=== PATIENT | male | born 1955 | race Caucasian/White ===

== ENCOUNTER 2022-06-10 12:54 | Emergency (ER) | payer MEDICARE, SELFPAY ==
[2022-06-10 12:55] VITALS: BP 168/91; PULSE 79; RESP 18; TEMP 36.8; O2SAT 98; BMI 29.0
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
[2022-06-10 14:01] VITALS: BP 142/65; PULSE 75; RESP 17; O2SAT 97
[2022-06-10] MEDS: Acetaminophen 500 MG Tablet 1000 MG PO (14:13)
== END 2022-06-10 14:25 | disposition home or self-care (01) ==
PROVIDERS: Emergency Provider Emergency Medicine; PCP Family Medicine; Visit Provider Emergency Medicine
DX: S13.4XXA Sprain of ligaments of cervical spine, initial encounter (principal); E11.9 Type 2 diabetes mellitus without complications; Z79.84 Long term (current) use of oral hypoglycemic drugs; Z79.82 Long term (current) use of aspirin; V29.81 Motorcycle rider (driver) (passenger) injured in transport accident with military vehicle
CPT/HCPCS: 70450; 71046; 72125; 99284; A4216

== ENCOUNTER 2022-06-30 10:29 | Inpatient (IN) | payer MEDICARE, SELFPAY ==
[2022-06-30] VITALS (12 sets, daily range): BP systolic 100–126; BP diastolic 58–76; PULSE 52–102; RESP 16–19; TEMP 35.7–37; O2SAT 94–100; BMI 28.2; BMI 27.8
[2022-06-30 11:16] LABS: Absolute Lymphocyte Count 0.44 X10^3/uL (0.83-4.51); Absolute Neutrophil Count 14.7 X10^3/uL (2.0-7.7); Basophil# 0.03 X10^3/uL; Basophil% 0.2 % (0-1); Hematocrit 35.9 % (40-54); Hemoglobin 12.5 g/dL (13.0-16.5); Lymphocyte # 0.44 X10^3/ul (0.83-4.51); Lymphocyte % 2.7 % (19-41); Mean Corp Hgb Conc 34.8 g/dL (32-36); Mean Corpuscular Hgb 31.3 pg (27.0-32.0); Mean Platelet Vol. 10.2 fl (6.2-12.0); Monocyte# 1.33 X10^3/uL; NRBC Flagged by Analyzer 0 % (0-5); Neutrophil # 14.67 X10^3/uL (2.7-7.7); Neutrophil % 88.7 % (47-70); POSITIVE DIFFERENTIAL YES; Platelet Count 194 K/mm3 (150-450); RBC Distribution Width CV 13.1 % (11.6-14.6); Red Blood Count 3.99 M/mm3 (4.6-6.2); White Blood Count 16.5 K/mm3 (4.4-11.0)
[2022-06-30] MEDS: 0.9% Normal Saline 1,000 ML 150 ML IV (11:28)
[2022-06-30 11:31] LABS: AST(SGOT) 80 U/L (15-37); Alanine Aminotransfer ALT/SGPT 121 U/L (16-61); Alkaline Phosphatase 397 U/L (45-117); Anion Gap 11 (5-15); BUN 15 mg/dL (7-18); BUN/Creat Ratio 10.3 RATIO (10-20); Bilirubin, Direct 8.02 mg/dL (0.00-0.30); Calcium,Total 8.9 mg/dL (8.5-10.1); Chloride 98 mmol/L (98-107); Creatinine, Serum 1.45 mg/dL (0.70-1.30); EST Glomerular Filtration Rate 52 mL/min (>60); Est Glom Filt Rate - Afr Amer 62 mL/min (>60); Estimated Creatinine Clearance 57.48 ml/min; Globulin 3.9 g/dL (2.2-4.2); Glucose 303 mg/dL (74-106); Lipase 190 U/L (73-393); Potassium 4.4 mmol/L (3.5-5.1); Protein, Total 6.9 g/dL (6.4-8.2); Sodium Level 132 mmol/L (136-145)
[2022-06-30 11:35] LABS: Differential Indicated SCAN CRITERIA MET
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
--- NOTE | 2022-06-30 12:19 | NURSING ---
MED SURG JESUS ALBERTO CHOLEDOCHOLITHIASIS
[2022-06-30 12:57] LABS: International Normalized Ratio 1.1; Prothrombin Time (Protime)PT. 13.5 SECONDS (11.7-14.9)
[2022-06-30 12:58] LABS: Partial Thromboplast Time 23.7 Seconds (24.1-36.2)
[2022-06-30 13:04] LABS: Differential Comment SCANNED
[2022-06-30] MEDS: 0.9% Normal Saline 1,000 ML 15 ML IV (14:35)
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
--- NOTE | 2022-06-30 16:40 | RAD_ITS ---
CLINICAL HISTORY: Male, 66 years old. Pain. PROCEDURE: ERCP. FLUOROSCOPY TIME (if supplied): 81.9 seconds. Exposure of 30.22 mGy TECHNIQUE: Fluoroscopy was performed during an ERCP. 24 images were presented for interpretation. The initial images demonstrates cannulization CBD with injection of contrast. There is evidence of balloon stripping of the CBD which appears larger in diameter than the endoscope. The intrahepatic ducts appear normal. There is eventual placement of a biliary stent. Please refer to the residual report for further details. RAD/ERCP Biliary/Pancreas IMPRESSION: Fluoroscopy performed during ERCP. Electronically Signed: Sage Hameed DO at 19:32 EST ,
--- NOTE | 2022-06-30 17:22 | OP.ERCP_ITS ---
Patient Name: Vicente Linda Procedure Date: 06/30/2022 4:08 PM Date of : 1955 Age: 66 Procedure: ERCP Indications: Jaundice, Elevated liver enzymes Providers: Tan Ramirez DO Medicines: Monitored Anesthesia Care Patient Profile: This is a 66 year old male. Refer to note in patient chart for documentation of history and physical. Patient has symptoms of acute jaundice. Complications: No immediate complications. Procedure: Pre-Anesthesia Assessment: - Prior to the procedure, a History and Physical was performed, and patient medications and allergies were reviewed. The risks and benefits of the procedure and the sedation options and risks were discussed with the patient. All questions were answered and informed consent was obtained. Patient identification and proposed procedure were verified by the physician in the pre-procedure area. Mental Status Examination: alert and oriented. Airway Examination: normal oropharyngeal airway and neck mobility. Respiratory Examination: clear to auscultation. CV Examination: normal. Prophylactic Antibiotics: The patient does not require prophylactic antibiotics. Prior Anticoagulants: The patient has taken no previous anticoagulant or antiplatelet agents. ASA Grade Assessment: III - A patient with severe systemic disease. After reviewing the risks and benefits, the patient was deemed in satisfactory condition to undergo the procedure. The anesthesia plan was to use monitored anesthesia care (MAC). Immediately prior to administration of medications, the patient was re-assessed for adequacy to receive sedatives. The heart rate, respiratory rate, oxygen saturations, blood pressure, adequacy of pulmonary ventilation, and response to care were monitored throughout the procedure. The physical status of the patient was re-assessed after the procedure. After obtaining informed consent, the scope was passed under direct vision. Throughout the procedure, the patient's blood pressure, pulse, and oxygen saturations were monitored continuously. The Duodenoscope was introduced through the mouth, and advanced to the duodenum and used to inject contrast into the bile duct. Scope In: 4:41:17 PM Scope Out: 5:03:04 PM Total Procedure Duration Time 0 hours 21 minutes 47 seconds Findings: The lunchroom mother film was normal. The esophagus was successfully intubated under direct vision. The scope was advanced to a normal major papilla in the descending duodenum without detailed examination of the pharynx, larynx and associated structures, and upper GI tract. The upper GI tract was grossly normal. The bile duct was deeply cannulated with the short-nosed traction sphincterotome. Contrast was injected. I personally interpreted the bile duct images. There was brisk flow of contrast through the ducts. Image quality was excellent. Contrast extended to the entire biliary tree. The lower third of the main bile duct was completely obstructed by what appeared to be a stone. Opacification of the entire biliary tree except for the cystic duct and gallbladder and main bile duct was successful. The maximum diameter of the ducts was 10 mm. The lower third of the main bile duct contained three stones, the largest of which was 6 mm in diameter. The main bile duct was moderately dilated and diffusely dilated, with a stone causing an obstruction. The largest diameter was 12 mm. A straight Roadrunner wire was passed into the biliary tree. A 5 mm biliary sphincterotomy was made with a monofilament traction (standard) sphincterotome using ERBE electrocautery. The sphincterotomy oozed blood. The biliary tree was swept with a 15 mm balloon starting at the bifurcation. Sludge was swept from the duct. All stones were removed. Dilation of the common bile duct with a 6-7-8 mm x 5.5 cm CRE balloon (to a maximum balloon size of 8 mm) dilator was successful. One 10 Fr by 7 cm temporary stent was placed 5 cm into the common bile duct. Bile flowed through the stent. The stent was in good position. Impression: - The entire main bile duct was moderately dilated, with a stone causing an obstruction. - Choledocholithiasis with an obstruction was found. Complete removal was accomplished by biliary sphincterotomy and balloon extraction. - A biliary sphincterotomy was performed. - The biliary tree was swept. - Common bile duct was successfully dilated. - One temporary stent was placed into the common bile duct. Procedure Code(s): --- Professional --- 98822, Endoscopic retrograde cholangiopancreatography (ERCP); with placement of endoscopic stent into biliary or pancreatic duct, including pre- and post-dilation and guide wire passage, when performed, including sphincterotomy, when performed, each stent [id number], Endoscopic retrograde cholangiopancreatography (ERCP); with removal of calculi/debris from biliary/pancreatic duct(s) 10837, 26, Endoscopic catheterization of the biliary ductal system, radiological supervision and interpretation CPT copyright 2017 [employer]. All rights reserved. The codes documented in this report are preliminary and upon remote medical coder review may be revised to meet current compliance requirements. Tan Ramirez DO 06/30/2022 5:21:51 PM This report has been signed electronically. Number of Addenda: 0 Note Initiated On: 06/30/2022 4:08 PM
--- NOTE | 2022-06-30 17:22 | OP.CCLET_ITS ---
06/30/2022 Julio Chambers MD Re : ERCP procedure for Vicente Linda Dear Dr. Chambers This procedure was performed on Thursday, June 30, 2022. My impressions and recommendations are as follows: Impressions : - The entire main bile duct was moderately dilated, with a stone causing an obstruction. - Choledocholithiasis with an obstruction was found. Complete removal was accomplished by biliary sphincterotomy and balloon extraction. - A biliary sphincterotomy was performed. - The biliary tree was swept. - Common bile duct was successfully dilated. - One temporary stent was placed into the common bile duct. Recommendations : My findings are described in the full procedure note, which is enclosed. If I can be of further assistance, please feel free to contact me at . Sincerely, Tan Ramirez, 06/30/2022 5:21:51 PM This report has been signed electronically.
[2022-06-30] MEDS: 0.9% Normal Saline 1,000 ML 75 ML IV (18:26)
[2022-06-30 18:45] LABS: Bedside Glucose 254 mg/dL (74-106)
[2022-06-30] MEDS: Atorvastatin Calcium 10 MG Tablet PO (22:41)
[2022-07-01] VITALS (15 sets, daily range): BP systolic 112–163; BP diastolic 39–127; PULSE 56–75; RESP 16–18; TEMP 36.3–36.8; O2SAT 93–100; BMI 27.9
--- NOTE | 2022-07-01 06:00 | EKG12_ITS ---
Test Reason : AM EKG Blood Pressure : / mmHG Vent. Rate : 058 BPM Atrial Rate : 058 BPM P-R Int : 148 ms QRS Dur : 076 ms QT Int : 402 ms P-R-T Axes : 068 006 -01 degrees QTc Int : 394 ms Sinus bradycardia Abnormal ECG Confirmed by RADHA GALLEGOS, MAXWELL ([id number]), development editor RICARDO GRANGER ([id number]) on 07/02/2022 9:12:46 AM Referred By: JESUS ALBERTO Confirmed By:MAXWELL GARCIA MD
[2022-07-01 06:08] LABS: Absolute Lymphocyte Count 0.87 X10^3/uL (0.83-4.51); Absolute Neutrophil Count 4.2 X10^3/uL (2.0-7.7); Basophil# 0.03 X10^3/uL; Basophil% 0.5 % (0-1); Eosinophil# 0.06 X10^3/uL; Hemoglobin 11.1 g/dL (13.0-16.5); Lymphocyte # 0.87 X10^3/ul (0.83-4.51); Lymphocyte % 14.8 % (19-41); Mean Corp Hgb Conc 33.6 g/dL (32-36); Mean Corpuscular Hgb 30.9 pg (27.0-32.0); Mean Corpuscular Volume 91.9 fL (80-94); Mean Platelet Vol. 10.4 fl (6.2-12.0); Monocyte# 0.66 X10^3/uL; Monocyte% 11.2 % (0-10); NRBC Flagged by Analyzer 0 % (0-5); Neutrophil # 4.24 X10^3/uL (2.7-7.7); Neutrophil % 72.2 % (47-70); Platelet Count 160 K/mm3 (150-450); RBC Distribution Width CV 13.5 % (11.6-14.6); RBC Distribution Width SD 45.5 fl (35.1-43.9); Red Blood Count 3.59 M/mm3 (4.6-6.2); White Blood Count 5.9 K/mm3 (4.4-11.0)
[2022-07-01 06:41] LABS: AST(SGOT) 43 U/L (15-37); Alanine Aminotransfer ALT/SGPT 84 U/L (16-61); Albumin, Serum 2.5 g/dL (3.2-5.0); Alkaline Phosphatase 311 U/L (45-117); Anion Gap 6 (5-15); BUN 15 mg/dL (7-18); BUN/Creat Ratio 13.3 RATIO (10-20); Bilirubin, Direct 5.49 mg/dL (0.00-0.30); Calcium,Total 8.7 mg/dL (8.5-10.1); Chloride 107 mmol/L (98-107); Creatinine, Serum 1.13 mg/dL (0.70-1.30); EST Glomerular Filtration Rate 69 mL/min (>60); Est Glom Filt Rate - Afr Amer 83 mL/min (>60); Estimated Creatinine Clearance 73.75 ml/min; Globulin 3.4 g/dL (2.2-4.2); Glucose 155 mg/dL (74-106); Potassium 4.6 mmol/L (3.5-5.1); Protein, Total 5.9 g/dL (6.4-8.2); Sodium Level 140 mmol/L (136-145)
[2022-07-01] MEDS: Losartan Potassium 100 MG Tablet PO (07:58)
[2022-07-01 08:33] LABS: Hemoglobin A1c 6.6 % (3.8-5.6)
--- NOTE | 2022-07-01 10:22 | PN.HOSP_ITS ---
Reason for Visit Reason for Visit: Follow-up for calcified chronic cholelithiasis without cholecystitis and choledocholithiasis with obstructive jaundice Diagnoses Calculus of gallbladder without cholecystitis without obstruction (06/30/22) Calculus of bile duct without cholangitis or cholecystitis with obstruction (06/30/22) Objective Data Objective Data Vital Signs: Vital Signs Temp Pulse Resp BP Pulse Ox O2 Del Method 97.4 F L 56 L 17 124/64 H 96 Room Air 07/01/22 05:28 07/01/22 05:28 07/01/22 05:28 07/01/22 05:28 07/01/22 07:53 07/01/22 07:53 Oxygen Delivery Method Room Air Weight: 217 lb 13.067 oz Body Mass Index (BMI) 27.9 Intake & Output: Intake and Output for Last 24 Hours 06/29/22 06/30/22 07/01/22 23:59 23:59 23:59 Intake Total 280 / 520 2340 / 2340 Balance 280 / 520 2340 / 2340 Lab / Micro Data Result Diagrams: 07/01/22 05:45 07/01/22 05:45 Labs: Laboratory Results - last 24 hr 06/30/22 11:05: PT 13.5, INR 1.1, APTT 23.7 L 06/30/22 11:08: WBC 16.5 H, RBC 3.99 L, Hgb 12.5 L, Hct 35.9 L, MCV 90.0, MCH 31.3, MCHC 34.8, RDW Std Deviation 43.0, RDW Coeff of Thais 13.1, Plt Count 194, MPV 10.2, Immature Gran % (Auto) 0.400, Neut % (Auto) 88.7 H, Lymph % (Auto) 2.7 L, Beadle % (Auto) 8.0, Eos % (Auto) 0.0, Baso % (Auto) 0.2, Absolute Neuts (auto) 14.7 H, Absolute Lymphs (auto) 0.44 L, Nucleated RBC % 0, Differential Comment SCANNED 06/30/22 11:08: Sodium 132 L, Potassium 4.4, Chloride 98, Carbon Dioxide 23.0, Anion Gap 11, BUN 15, Creatinine 1.45 H, Estim Creat Clear Calc 57.48, Est GFR (MDRD) Af Amer 62, Est GFR (MDRD) Non-Af 52 L, BUN/Creatinine Ratio 10.3, Glucose 303 H, Calcium 8.9, Total Bilirubin 9.80 H, Direct Bilirubin 8.02 H, AST 80 H, ALT 121 H, Alkaline Phosphatase 397 H, Total Protein 6.9, Albumin 3.0 L, Globulin 3.9, Lipase 190 06/30/22 14:07: POC Glucose 254 H 07/01/22 05:45: Sodium 140, Potassium 4.6, Chloride 107, Carbon Dioxide 27.0, Anion Gap 6, BUN 15, Creatinine 1.13, Estim Creat Clear Calc 73.75, Est GFR (MDR D) Af Amer 83, Est GFR (MDRD) Non-Af 69, BUN/Creatinine Ratio 13.3, Glucose 155 H, Calcium 8.7, Total Bilirubin 6.60 H, Direct Bilirubin 5.49 H, AST 43 H, ALT 84 H, Alkaline Phosphatase 311 H, Total Protein 5.9 L, Albumin 2.5 L, Globulin 3.4 07/01/22 05:45: WBC 5.9, RBC 3.59 L, Hgb 11.1 L, Hct 33.0 L, MCV 91.9, MCH 30.9, MCHC 33.6, RDW Std Deviation 45.5 H, RDW Coeff of Thais 13.5, Plt Count 160, MPV 10.4, Immature Gran % (Auto) 0.300, Neut % (Auto) 72.2 H, Lymph % (Auto) 14.8 L, Beadle % (Auto) 11.2 H, Eos % (Auto) 1.0, Baso % (Auto) 0.5, Absolute Neuts (auto) 4.2, Absolute Lymphs (auto) 0.87, Nucleated RBC % 0 07/01/22 05:45: Hemoglobin A1c 6.6 H Radiography Diagnostic Testing: Radiology Impression Endo Retro Cholangiopancreatogram 06/30/22 16:40 IMPRESSION: Fluoroscopy performed during ERCP. Electronically Signed: Sage Hameed DO at 19:32 EST Reading Location ID and State: [facility] / [place] Tel [phone], Service support , Physical Exam Narrative Overall patient is states he is feeling better after ERCP.His jaundice has improved. Total bilirubin is improved. Physical exam General: Alert, Oriented x3, Cooperative HEENT: Deep yellow color icterus present. Atraumatic, PERRLA, EOMI, Normocephalic Oral: No Gingival or Mucosal Lesions/ Ulcerations Neck: Supple, No JVD, Negative Carotid Bruits Lungs: Air entry diminished in bilateral lung bases. No crepitation/rhonchi Cardiovascular: Regular rate, Regular Rhythm, Normal S1, Normal S2, No murmurs Abdomen: Soft, no acute right upper or epigastric tenderness. No guarding/rigidity. No palpable mass. No abdominal distention. : No renal angle tenderness. No suprapubic tenderness. Extremities: No edema, Capillary Refill Less than 3 Seconds Skin: No rashes, No breakdown Musculoskeletal: No Tenderness to Palpation of Joints or Extremities. ROM full and adequate. Neurological: Cranial nerves II-XII grossly intact, DTR 2+/4 and Symmetrical, Neuro grossly intact Psych/Mental Status: Normal Affect, Appropriate. Assessment & Plan Assessment/Plan (1) Choledocholithiasis with obstruction: (2) Cholelithiasis: PLAN: Plan This 66-year-old gentleman is being admitted for further evaluation of cholelithiasis with choledocholithiasis and need for ERCP and possible lap giselle. 1. Chronic cholelithiasis with choledocholithiasis causing obstructive jaundice: Patient is being admitted on Med[facility] floor.Patient lab work on 06/16/2022 shows TB 3.1, DP 1.8, ALP 285, ALT 77, AST 31, total protein albumin normal. Glucose 191. Electrolytes were normal. BUN/creatinine 12/0.78. Patient had CT abdomen pelvis with IV contrast on 06/18/2022 reported as dilatation of CBD, HPr. CBD 1.8 cm. Possible filling defect in distal CBD just proximal to ampulla. GB distended with several small calcified stones in the dependent portion. No GB wall thickening or PC fluid. Liver no mass. Spleen no mass no splenomegaly. Patient had MRI/MRCP on 06/26/2022 reported as bile duct 2 cm, consider ERCP and similar findings of CT abdomen with several GB stones and distended GB. Labs done in the ED shows TB 9.8, DB 8.02, ALT 121, AST 80 alkaline phosphatase 397. GI was consulted. Empirically patient is high risk for hepatobiliary sepsis therefore patient started on IV Zosyn. 07/01: ERCP was done on 06/30 and entire main bile duct was moderately dilated with a stone causing obstruction. Complete removal was accomplished by biliary sphincterotomy and balloon extraction. 1 temporary stent was placed. Twelve- lead EKG shows sinus bradycardia 58 beats per, QTc [address]-T luo es. Patient does not have chest pain or shortness of breath. Patient has moderate perioperative risk for moderate risk laparoscopic cholecystectomy. Patient plan for lap giselle at 1 PM. After ERCP, patient is feeling better with decreased dryness in eyes.INR is 1.1. Total bilirubin, direct bilirubin, ALT AST and alkaline phosphatase all improving. Serum lipase normal. Discussed with surgeon Dr. Cruz. 2. Diabetes mellitus type 2: Glucose in BMP 303, hyperglycemia. Accu-Chek before meals and at bedtime coverage Humalog sliding scale. Lantus 10 units subcutaneous at bedtime daily. Glucose is 254. Continue Accu-Cheks.Lantus dose decreased to 8 units subcutaneous daily as patient is NPO. 3. Hypertension and dyslipidemia: Blood pressure is in normal range. Home medication reconciliation done. DVT prophylaxis, moderate to high risk: Lovenox 40 mg subcu daily. Living will/advanced directive/end of life care: Patient does not have living will or advanced directive. After discussion of benefits/risks procedures involved with full code, DNR CC arrest and DNR CC, the patient opted for full code. Patient does want artificial life support including intubation, tube feed, ventilator and/chest compression, central venous catheter, vasopressor and DC shock if needed Total time spent in [id number] encounter in discussion of advanced directive 17 minutes. Charges/Coding Visit Charges Inpatient E&M: 59366 [facility] Hosp L3
--- NOTE | 2022-07-01 10:32 | EX.PCM.CON.S ---
Assessment & Plan Assessment/Plan (1) Choledocholithiasis with obstruction: PLAN: Patient had ERCP yesterday and several stones removed from his distal common bile duct and a stent was placed. I was consulted to perform laparoscopic cholecystectomy prevent more of this in the future. I discussed the procedure in detail with the patient. I discussed the risks, benefits, and alternatives of the procedure. I discussed the risks including but not limited to bleeding, infection, injury to surrounding organs such as the liver, bile duct, bowels. I did discuss the possibility of having to convert to an open procedure as well as the possibility that if any injuries occurred this may necessitate further surgery at a tertiary care center. Plan for surgery this afternoon. Edenilson Cruz MD Pager: [facility] [address] [place] [address] [address] [place] [address] Office: HPI Consult Data Date of Consult: 07/01/22 HPI Narrative HPI Narrative: ROGELIO ROCHE, is a 66 M who had ERCP yesterday with stone removal from the common bile duct. Patient does not report any right upper quadrant pain at this time. Patient denies nausea vomiting or fevers or chills this morning. [facility] Medical History Diabetes Hypertension Home Medications aspirin 81 mg tablet,delayed release 81 mg PO DAILY HEART HEALTH 06/30/22 [History Last Taken 06/30/22] losartan 100 mg tablet 100 mg PO DAILY BLOOD PRESSURE 06/30/22 [History Last Taken 06/30/22] metformin 1,000 mg tablet 1,000 mg PO BID DIABETES 06/30/22 [History Last Taken 06/30/22] simvastatin 20 mg tablet 20 mg PO QHS CHOLESTEROL 06/30/22 [History Last Taken 06/29/22] Allergy/AdvReac Type Severity Reaction Status Date / Time No Known Allergies Allergy Verified 06/30/22 11:21 Surgical History History of partial colectomy Social History Smoking Status: Never smoker ROS Constitutional Constitutional: Denies anorexia or fatigue Eyes Eyes: Denies blurry vision ENT HEENT: Denies abnormal hearing Cardiovascular Cardiovascular: Denies chest pain Respiratory/Chest Respiratory/Chest: Denies cough or dyspnea Gastrointestinal Gastrointestinal: Reports abdominal pain; Denies nausea or vomiting Genitourinary Genitourinary: Denies change in urinary stream Musculoskeletal Musculoskeletal: Denies abnormal gait Integumentary Integumentary: Reports jaundice Neurologic Neurologic: Denies abnormal gait Psychiatric Psychiatric: Denies depression Endocrine Endocrinology: Denies flushing Hematologic/Lymphatic Hematologic/Lymphatic: Denies easy bleeding Physical Exam Const alert and oriented x3 HEENT normocephalic Eyes PERRL Resp normal respiratory effort Cardio Rate: regular rate Rhythm: regular rhythm GI soft to palpation and non-tender Lab / Micro Data Result Diagrams: 07/01/22 05:45 07/01/22 05:45 Labs: Laboratory Results - last 24 hr 06/30/22 11:05: PT 13.5, INR 1.1, APTT 23.7 L 06/30/22 11:08: WBC 16.5 H, RBC 3.99 L, Hgb 12.5 L, Hct 35.9 L, MCV 90.0, MCH 31.3, MCHC 34.8, RDW Std Deviation 43.0, RDW Coeff of Thais 13.1, Plt Count 194, MPV 10.2, Immature Gran % (Auto) 0.400, Neut % (Auto) 88.7 H, Lymph % (Auto) 2.7 L, Lake % (Auto) 8.0, Eos % (Auto) 0.0, Baso % (Auto) 0.2, Absolute Neuts (auto) 14.7 H, Absolute Lymphs (auto) 0.44 L, Nucleated RBC % 0, Differential Comment SCANNED 06/30/22 11:08: Sodium 132 L, Potassium 4.4, Chloride 98, Carbon Dioxide 23.0, Anion Gap 11, BUN 15, Creatinine 1.45 H, Estim Creat Clear Calc 57.48, Est GFR (MDRD) Af Amer 62, Est GFR (MDRD) Non-Af 52 L, BUN/Creatinine Ratio 10.3, Glucose 303 H, Calcium 8.9, Total Bilirubin 9.80 H, Direct Bilirubin 8.02 H, AST 80 H, ALT 121 H, Alkaline Phosphatase 397 H, Total Protein 6.9, Albumin 3.0 L, Globulin 3.9, Lipase 190 03/07/23 14:07: POC Glucose 254 H 07/01/22 05:45: Sodium 140, Potassium 4.6, Chloride 107, Carbon Dioxide 27.0, Anion Gap 6, BUN 15, Creatinine 1.13, Estim Creat Clear Calc 73.75, Est GFR (MDRD) Af Amer 83, Est GFR (MDRD) Non-Af 69, BUN/Creatinine Ratio 13.3, Glucose 155 H, Calcium 8.7, Total Bilirubin 6.60 H, Direct Bilirubin 5.49 H, AST 43 H, ALT 84 H, Alkaline Phosphatase 311 H, Total Protein 5.9 L, Albumin 2.5 L, Globulin 3.4 07/01/22 05:45: WBC 5.9, RBC 3.59 L, Hgb 11.1 L, Hct 33.0 L, MCV 91.9, MCH 30.9, MCHC 33.6, RDW Std Deviation 45.5 H, RDW Coeff of Thais 13.5, Plt Count 160, MPV 10.4, Immature Gran % (Auto) 0.300, Neut % (Auto) 72.2 H, Lymph % (Auto) 14.8 L, Lake % (Auto) 11.2 H, Eos % (Auto) 1.0, Baso % (Auto) 0.5, Absolute Neuts (auto) 4.2, Absolute Lymphs (auto) 0.87, Nucleated RBC % 0 07/01/22 05:45: Hemoglobin A1c 6.6 H Radiology Impression Endo Retro Cholangiopancreatogram 06/30/22 16:40 IMPRESSION: Fluoroscopy performed during ERCP. Electronically Signed: Sage Hameed DO at 19:32 EST Reading Location ID and State: [address] [place] [address] Tel [phone], Service support ,
[2022-07-01 11:46] LABS: Bedside Glucose 136 mg/dL (74-106)
--- NOTE | 2022-07-01 12:03 | CASEMGMT ---
Addendum entered by Yana Vanegas 07/01/22 15:49: Pt remains off of the floor. Will attempt assessment tomorrow. Original Note: AXEL CM in to pt room for assessment, pt is off of the floor at this time.
[2022-07-01] MEDS: Lactated Ringers 1,000 ML 15 ML IV ×2 (12:25→17:09)
[2022-07-01 12:45] LABS: Troponin-I HS 8 pg/mL (3.0-78.0)
--- NOTE | 2022-07-01 13:00 | PN_ITS ---
Subjective Subjective Patient underwent ERCP yesterday for obstructive jaundice secondary to choledocholithiasis. He does not have any abdominal pain at this time. He has been on IV fluids overnight and is scheduled to have cholecystectomy today. His urine is still dark but it is improving. He still complains of jaundice but his itching is drastically better. Objective Data Objective Data Vital Signs: Vital Signs Temp Pulse Resp BP Pulse Ox O2 Del Method 98.1 F 60 18 142/72 H 100 Room Air 07/01/22 11:30 07/01/22 11:30 07/01/22 11:30 07/01/22 11:30 07/01/22 11:30 07/01/22 11:30 Oxygen Delivery Method Room Air Weight: 217 lb 13.067 oz Body Mass Index (BMI) 27.9 Intake & Output: Intake and Output for Last 24 Hours 06/29/22 06/30/22 07/01/22 23:59 23:59 23:59 Intake Total 280 / 520 2340 / 2340 Balance 280 / 520 2340 / 2340 Lab / Micro Data Result Diagrams: 07/01/22 05:45 07/01/22 05:45 Labs: Laboratory Results - last 24 hr 06/30/22 11:08: Differential Comment SCANNED 06/30/22 14:07: POC Glucose 254 H 07/01/22 05:45: Sodium 140, Potassium 4.6, Chloride 107, Carbon Dioxide 27.0, Anion Gap 6, BUN 15, Creatinine 1.13, Estim Creat Clear Calc 73.75, Est GFR (MD HOYT) Af Amer 83, Est GFR (MDRD) Non-Af 69, BUN/Creatinine Ratio 13.3, Glucose 155 H, Calcium 8.7, Total Bilirubin 6.60 H, Direct Bilirubin 5.49 H, AST 43 H, ALT 84 H, Alkaline Phosphatase 311 H, Total Protein 5.9 L, Albumin 2.5 L, Globulin 3.4 07/01/22 05:45: WBC 5.9, RBC 3.59 L, Hgb 11.1 L, Hct 33.0 L, MCV 91.9, MCH 30.9, MCHC 33.6, RDW Std Deviation 45.5 H, RDW Coeff of Thais 13.5, Plt Count 160, MPV 10.4, Immature Gran % (Auto) 0.300, Neut % (Auto) 72.2 H, Lymph % (Auto) 14.8 L, Avery % (Auto) 11.2 H, Eos % (Auto) 1.0, Baso % (Auto) 0.5, Absolute Neuts (auto) 4.2, Absolute Lymphs (auto) 0.87, Nucleated RBC % 0 07/01/22 05:45: Hemoglobin A1c 6.6 H 07/01/22 05:45: Troponin I High Sens 8 07/01/22 11:23: POC Glucose 136 H Radiography Diagnostic Testing: Radiology Impression Endo Retro Cholangiopancreatogram 06/30/22 16:40 IMPRESSION: Fluoroscopy performed during ERCP. Electronically Signed: Sage Hameed DO at 19:32 EST Reading Location ID and State: [facility] / [place] Tel [phone], Service support , Physical Exam Const alert and oriented x3 HEENT normocephalic Eyes PERRL Resp normal respiratory effort Cardio Rate: regular rate Rhythm: regular rhythm GI soft to palpation and non-tender Assessment & Plan Assessment/Plan (1) Choledocholithiasis with obstruction: PLAN: Patient is doing well and his LFTs are improving. I suspect that they will continue to go down. I will place him on ursodiol and he will need to take that for approximately 6 months and his stent will have to be removed in the next 2 to 3 months. Charges/Coding Visit Charges Inpatient E&M: 61469 Subs Hosp L2
--- NOTE | 2022-07-01 13:00 | GALL_PTH ---
PATIENT: ROGELIO ROCHE LOC: MS3 U#:[id number] AGE/SX: 66/M ROOM: [facility] RE06/30/[address]: Dr. Luis Junior MD : [id number] BED: 1 DIS: 07/02/2022 SPEC #: [id number] RECD: 07/01/22 17:05 STATUS: ZULEIKA REConstance #: [id number] TITO: 07/01/22 13:[address]: Edenilson Cruz DEPT: SURGICAL PATHOLOGY RECD BY: Sonya Beauchamp ENTERED: 07/02/22 08:15 SP TYPE: GALLBLADDE OTHR DR: MD Dr. Luis Rodriguez MD Tissues: Gallbladder, NOS Procedures: Surgery Specimen Level III Comments: @ Ordering doctor for SUIII edited from to @ by SHERYL at 07/02/22 1525 @ Submitting doctor edited from to @ by RGOOD at 07/02/22 1525 HEADER OPERATION: Laparoscopic cholecystectomy with IOC PRE-OP DIAGNOSIS: Choledocholithiasis with obstruction TISSUE SUBMITTED: Gallbladder and contents MICROSCOPIC DIAGNOSIS Gallbladder and contents, cholecystectomy: Acute and chronic cholecystitis and cholelithiasis. CHIARA:christoph 07/03/2022 MICROSCOPIC DESCRIPTION Slides are reviewed. GROSS DESCRIPTION Received is one container labeled with the patient's name and designated gallbladder and contents. The specimen consists of a gallbladder measuring 4.5 cm in length and up to 5.5 cm in diameter. The external surface is pink-mcelroy, smooth and glistening for the most part. Focally it is granular, hemorrhagic and contains cautery artifact. The gallbladder contains green-yellow mucoid bile and multiple black irregular stones measuring in aggregate 2.5 x 2.0 x 0.8 cm and 0.3 to 1.0 cm in greatest dimension. The mucosa is bile-stained and without any mass lesions. The gallbladder wall measures up to 0.5 cm in thickness. Bar Tacker sections from the gallbladder and the cystic duct are submitted in one cassette. / CHIARA:christoph 07/02/2022 TC:2 CPT: 74232
--- NOTE | 2022-07-01 13:43 | CPS ---
patient is in surgery
--- NOTE | 2022-07-01 15:31 | RAD_ITS ---
STUDY: INTRAOPERATIVE CHOLANGIOGRAM. REASON FOR EXAM: Male, 66 years old. Laparoscopic cholecystectomy. FLUOROSCOPY TIME (if supplied): ( 16.4 seconds ) minutes/seconds. 9.6 mGy TECHNIQUE: Intraoperative glandular was performed by the surgeon. Imaging was submitted. COMPARISON: None. FINDINGS: There is dilatation of the central intrahepatic biliary ducts and common bile duct to its midportion. A stent is seen. No contrast is seen distal to the midportion of the common bile duct. Contrast is seen entering the duodenum secondary to the stent. A neoplastic process should be ruled out. RAD/Cholangiogram/ O R,Initial IMPRESSION: Narrowing with obstruction in the midportion of the common bile duct as described. A neoplastic process should be ruled out. Electronically Signed: Domenico Malave MD at 16:13 EST ,
--- NOTE | 2022-07-01 15:41 | CPS ---
patient just back from surgery
[2022-07-01] MEDS: Bupiv/Epi 0.25% 30 ML Vial (16:20)
--- NOTE | 2022-07-01 16:51 | OP.PCM_ITS ---
Report of Operation Date of Procedure: 07/01/22 Pre-Operative Diagnosis: Choledocholithiasis Post-Operative Diagnosis: Choledocholithiasis and acute cholecystitis Surgery/Procedure Performed:: Laparoscopic cholecystectomy with cholangiogram Specimen's removed: Gallbladder and contents Description of Procedure: After obtaining informed consent patient was brought back to the operating room. General anesthesia was induced. The abdomen was prepped and draped in usual sterile fashion. A small midline incision was made superior to the umbilicus and deepened to the level of fascia. The fascia was elevated and incised. Next the peritoneum was elevated and incised in the same fashion. Finger sweep was performed and the Lechgua trocar was placed into the abdomen. The balloon was inflated. The abdomen was inflated to 15 mmHg. Next a camera was introduced into the abdomen and the abdomen was inspected. Next under direct visualization three 5-mm ports were placed one subxiphoid and 2 subcostal. Next the ga llbladder was elevated and retracted toward the right shoulder. The peritoneum was stripped from the gallbladder. The infundibulum was located and retracted laterally. Next the triangle of Calot was dissected and the cystic duct and cystic artery were identified. Cholangiograms were performed. The [place] clamp was used to clamp across the infundibulum and the catheter needle was inserted into the gallbladder. Under fluoroscopy contrast was instilled into the gallbladder and the common duct, cystic duct as well as proximal hepatic ducts were identified. There was good filling of the duodenum. There were no filling defects noted in the common bile duct. The clamp was removed as well as the needle and the infundibulum was grasped once more. Three hemolock clips were placed across the cystic duct. The cystic duct was then divided leaving 2 clips on the stump. The cystic artery was clipped and divided in the same fashion. The hook cautery was then used to take the gallbladder off of the gallbladder bed. Gallbladder fossa was irrigated and hemostasis obtained using electrocautery. There was a small bile leak from a biliary radicle in the lateral aspect of the gallbladder fossa. This was dissected circumferentially and titanium clips were placed superiorly and inferiorly to it in the bile leak stopped. Gallbladder fossa was irrigated and no active bleeding or bile leakage was noted. Surgicel powder was placed into the gallbladder fossa for oozing. Next the camera was introduced in the subxiphoid port. An Endopouch bag was placed through the umbilical port and the gallbladder was placed into it. The gallbladder was then removed through the umbilical incision. The camera was then reinserted through the umbilical port. The gallbladder fossa was inspected once more and noted to be hemostatic with no leaking bile. The abdomen was suctioned dry. The 5 mm ports were removed under direct visualization. The umbilical port was then removed and the air was removed from the abdomen. Next using an 0 Vicryl suture the umbilical fascia was closed in a [id number] fashion. The umbilical port site was irrigated local anesthetic was administered to all the incisions. All the incisions were closed with interrupted subcuticular 4-0 Monocryl sutures followed by Steri-Strips and dressings. The patient was awoken and taken to PACU in stable condition. Admit VTE Documentation VTE Mechan Device Prophylaxis: SCD's
[2022-07-01 17:10] LABS: Bedside Glucose 150 mg/dL (74-106)
--- NOTE | 2022-07-01 18:10 | SUR.PHASEI ---
PATIENT DOES NOT HAVE ANY FAMILY HERE SO NO ONE HAS BEEN UPDATED. PATIENT SAID WILL UPDATE WHEN GETS UPSTAIRS.
[2022-07-01] MEDS: oxyCODONE 5 MG Tablet PO (20:47)
[2022-07-01] MEDS: Acetaminophen 325 MG Tablet 650 MG PO (20:48)
[2022-07-01] MEDS: Atorvastatin Calcium 10 MG Tablet PO (20:48)
[2022-07-01] MEDS: Ursodiol 250 MG Tablet PO (20:49)
[2022-07-01] MEDS: Insulin Lispro 100 UNIT/ML INSULN.PEN SC (21:51)
[2022-07-01 23:05] LABS: Bedside Glucose 236 mg/dL (74-106)
[2022-07-02 03:24] VITALS: BP 133/75; PULSE 66; RESP 18; TEMP 36.4; O2SAT 96
[2022-07-02 04:26] LABS: Bedside Glucose 299 mg/dL (74-106)
[2022-07-02 04:56] VITALS: BMI 28.0
[2022-07-02 05:41] LABS: Absolute Lymphocyte Count 0.49 X10^3/uL (0.83-4.51); Absolute Neutrophil Count 5.5 X10^3/uL (2.0-7.7); Hematocrit 33.2 % (40-54); Hemoglobin 11.2 g/dL (13.0-16.5); Lymphocyte # 0.49 X10^3/ul (0.83-4.51); Lymphocyte % 7.6 % (19-41); Mean Corp Hgb Conc 33.7 g/dL (32-36); Mean Corpuscular Hgb 30.4 pg (27.0-32.0); Mean Corpuscular Volume 90.2 fL (80-94); Monocyte# 0.42 X10^3/uL; Monocyte% 6.6 % (0-10); NRBC Flagged by Analyzer 0 % (0-5); Neutrophil # 5.47 X10^3/uL (2.7-7.7); Neutrophil % 85.3 % (47-70); POSITIVE DIFFERENTIAL YES; Platelet Count 186 K/mm3 (150-450); RBC Distribution Width CV 13.1 % (11.6-14.6); RBC Distribution Width SD 43.3 fl (35.1-43.9); Red Blood Count 3.68 M/mm3 (4.6-6.2); White Blood Count 6.4 K/mm3 (4.4-11.0)
[2022-07-02 05:49] LABS: Differential Indicated SCAN CRITERIA MET
[2022-07-02 06:22] LABS: AST(SGOT) 32 U/L (15-37); Alanine Aminotransfer ALT/SGPT 70 U/L (16-61); Albumin, Serum 2.3 g/dL (3.2-5.0); Alkaline Phosphatase 256 U/L (45-117); Anion Gap 11 (5-15); BUN 23 mg/dL (7-18); BUN/Creat Ratio 20.5 RATIO (10-20); Bilirubin, Direct 2.03 mg/dL (0.00-0.30); Calcium,Total 8.3 mg/dL (8.5-10.1); Chloride 102 mmol/L (98-107); Cholesterol 124 mg/dL (200); Creatinine, Serum 1.12 mg/dL (0.70-1.30); EST Glomerular Filtration Rate 69 mL/min (>60); Est Glom Filt Rate - Afr Amer 84 mL/min (>60); Estimated Creatinine Clearance 74.41 ml/min; Globulin 3.3 g/dL (2.2-4.2); Glucose 396 mg/dL (74-106); High Density Lipoprotein 17 mg/dL; Potassium 4.7 mmol/L (3.5-5.1); Protein, Total 5.6 g/dL (6.4-8.2); Sodium Level 136 mmol/L (136-145); Triglycerides 203 mg/dL; Very Low Density Lipoprotein 41 mg/dL (5-40)
[2022-07-02] MEDS: Insulin Lispro 100 UNIT/ML INSULN.PEN SC ×2 (06:51→14:37)
--- NOTE | 2022-07-02 07:00 | PN_ITS ---
Subjective Subjective Patient is doing well does not have any abdominal pain. He is status postcholecystectomy and status post ERCP with multiple stones removed and status post stent placement. Objective Data Objective Data Vital Signs: Vital Signs Temp Pulse Resp BP Pulse Ox O2 Del Method 98.1 F 66 18 156/71 H 98 Room Air 07/02/22 13:43 07/02/22 13:43 07/02/22 13:43 07/02/22 13:43 07/02/22 13:43 07/02/22 13:43 Oxygen Delivery Method Room Air Weight: 218 lb 11.177 oz Body Mass Index (BMI) 28.0 Intake & Output: Intake and Output for Last 24 Hours 06/30/22 07/01/22 07/02/22 23:59 23:59 23:59 Intake Total 280 / 520 3461.00 / 3461.00 460 / 460 Balance 280 / 520 3461.00 / 3461.00 460 / 460 Lab / Micro Data Result Diagrams: 07/02/22 05:24 07/02/22 05:24 Labs: Laboratory Results - last 24 hr 07/01/22 21:44: POC Glucose 236 H 07/02/22 03:12: POC Glucose 299 H 07/02/22 05:24: Sodium 136, Potassium 4.7, Chloride 102, Carbon Dioxide 23.0, Anion Gap 11, BUN 23 H, Creatinine 1.12, Estim Creat Clear Calc 74.41, Est GFR (MDRD) Af Amer 84, Est GFR (MDRD) Non-Af 69, BUN/Creatinine Ratio 20.5 H, Glucose 396 H, Calcium 8.3 L, Total Bilirubin 2.60 H, Direct Bilirubin 2.03 H, AST 32, ALT 70 H, Alkaline Phosphatase 256 H, Total Protein 5.6 L, Albumin 2.3 L , Globulin 3.3, Triglycerides 203 H, Cholesterol 124, LDL Cholesterol 66, VLDL Cholesterol 41 H, HDL Cholesterol 17 L 07/02/22 05:24: WBC 6.4, RBC 3.68 L, Hgb 11.2 L, Hct 33.2 L, MCV 90.2, MCH 30.4, MCHC 33.7, RDW Std Deviation 43.3, RDW Coeff of Thais 13.1, Plt Count 186, MPV 11.0, Immature Gran % (Auto) 0.500, Neut % (Auto) 85.3 H, Lymph % (Auto) 7.6 L, [place] % (Auto) 6.6, Eos % (Auto) 0.0, Baso % (Auto) 0.0, Absolute Neuts (auto) 5.5, Absolute Lymphs (auto) 0.49 L, Nucleated RBC % 0 07/02/22 06:50: POC Glucose 405 H 07/02/22 11:05: POC Glucose 389 H 07/02/22 14:36: POC Glucose 390 H Physical Exam Narrative Patient had lap giselle yesterday. Intra-Op cholangiogram findings discussed with the surgeon and mentioned in assessment plan. Jaundice is much improved. No abdominal pain. Patient tolerating diet. Passing flatus. Physical exam General: Alert, Oriented x3, Cooperative HEENT: Icterus/jaundice improving atraumatic, PERRLA, EOMI, Normocephalic Oral: No Gingival or Mucosal Lesions/ Ulcerations Neck: Supple, No JVD, Negative Carotid Bruits Lungs: Air entry diminished in bilateral lung bases. No crepitation/rhonchi Cardiovascular: Regular rate, Regular Rhythm, Normal S1, Normal S2, No murmurs Abdomen: Soft, no acute right upper or epigastric tenderness. No guarding/rigidity. No palpable mass. No abdominal distention. : No renal angle tenderness. No suprapubic tenderness. Extremities: No edema, Capillary Refill Less than 3 Seconds Skin: No rashes, No breakdown. No pruritus. Musculoskeletal: No Tenderness to Palpation of Joints or Extremities. ROM full and adequate. Neurological: Cranial nerves II-XII grossly intact, DTR 2+/4 and Symmetrical, Neuro grossly intact Psych/Mental Status: Normal Affect, Appropriate. Assessment & Plan Assessment/Plan (1) Choledocholithiasis with obstruction: PLAN: Patient is doing well and his LFTs are improving. I suspect that they will continue to go down. I will place him on ursodiol and he will need to take that for approximately 6 months and his stent will have to be removed in the next 2 to 3 months. Charges/Coding Visit Charges Inpatient E&M: 34456 Subs Hosp L2
[2022-07-02 07:11] LABS: Bedside Glucose 405 mg/dL (74-106)
--- NOTE | 2022-07-02 09:23 | PCM.PN.SRG ---
Subjective Subjective Patient reports that he is doing well with no abdominal pain. No nausea or vomiting. Tolerating regular diet. Objective Data Objective Data Vital Signs: Vital Signs Temp Pulse Resp BP Pulse Ox O2 Del Method 97.6 F L 66 18 133/75 H 96 Room Air 07/02/22 03:24 07/02/22 03:24 07/02/22 03:24 07/02/22 03:24 07/02/22 03:24 07/02/22 03:24 Oxygen Delivery Method Room Air Weight: 218 lb 11.177 oz Body Mass Index (BMI) 28.0 Intake & Output: Intake and Output for Last 24 Hours 06/30/22 07/01/22 07/02/22 23:59 23:59 23:59 Intake Total 280 / 520 3461.00 / 3461.00 50 / 50 Balance 280 / 520 3461.00 / 3461.00 50 / 50 Lab / Micro Data Result Diagrams: 07/02/22 05:24 07/02/22 05:24 Labs: Laboratory Results - last 24 hr 07/01/22 05:45: Troponin I High Sens 8 07/01/22 11:23: POC Glucose 136 H 07/01/22 16:48: POC Glucose 150 H 07/01/22 21:44: POC Glucose 236 H 07/02/22 03:12: POC Glucose 299 H 07/02/22 05:24: Sodium 136, Potassium 4.7, Chloride 102, Carbon Dioxide 23.0, Anion Gap 11, BUN 23 H, Creatinine 1.12, Estim Creat Clear Calc 74.41, Est GFR (MDRD) Af Amer 84, Est GFR (MDRD) Non-Af 69, BUN/Creatinine Ratio 20.5 H, Glucose 396 H, Calcium 8.3 L, Total Bilirubin 2.60 H, Direct Bilirubin 2.03 H, AST 32, ALT 70 H, Alkaline Phosphatase 256 H, Total Protein 5.6 L, Albumin 2.3 L, Globulin 3.3, Triglycerides 203 H, Cholesterol 124, LDL Cholesterol 66, VLDL Cholesterol 41 H, HDL Cholesterol 17 L 07/02/22 05:24: WBC 6.4, RBC 3.68 L, Hgb 11.2 L, Hct 33.2 L, MCV 90.2, MCH 30.4, MCHC 33.7, RDW Std Deviation 43.3, RDW Coeff of Thais 13.1, Plt Count 186, MPV 11.0, Immature Gran % (Auto) 0.500, Neut % (Auto) 85.3 H, Lymph % (Auto) 7.6 L, [place] % (Auto) 6.6, Eos % (Auto) 0.0, Baso % (Auto) 0.0, Absolute Neuts (auto) 5.5, Absolute Lymphs (auto) 0.49 L, Nucleated RBC % 0 07/02/22 06:50: POC Glucose 405 H Radiography Diagnostic Testing: Radiology Impression Cholangiogram 07/01/22 15:31 IMPRESSION: Narrowing with obstruction in the midportion of the common bile duct as described. A neoplastic process should be ruled out. Electronically Signed: Domenico Malave MD at 16:13 EST Reading Location ID and State: [facility] / [place] , Service support , Physical Exam Const oriented x3 Resp normal respiratory effort GI soft to palpation and non-tender Assessment & Plan Assessment/Plan (1) Choledocholithiasis with obstruction: PLAN: The patient had choledocholithiasis so I performed a laparoscopic cholecystectomy yesterday to remove the rest of the stones in the gallbladder. During cholangiogram it was noted that the only contrast able to pass through the distal common bile duct was through the stent meaning that the common bile duct is very tight around the stent in the distal common duct. There is still concern for possible malignancy as the patient has also had weight loss and had painless jaundice. I recommended to Dr. Ramirez further investigation into his common bile duct for ruling out malignancy. Other than that from my standpoint the patient to be discharged home and to have his work-up as an outpatient. Patient should follow-up with me in 2 weeks and was given postoperative instructions. Edenilson Cruz MD Pager: [facility] [address] [place] [address], [address] [place] [address] Office:
[2022-07-02 09:24] VITALS: BP 152/66; PULSE 65; RESP 18; TEMP 36.7; O2SAT 98
--- NOTE | 2022-07-02 09:32 | CASEMGMT ---
AXEL COLINDRES Assessment: Face to Face with pt for initial transition planning/care coordination assessment. RN JENS introduced self and role at [facility], pt voices understanding and consents to assessment. Pt is A/O x4 and answers all questions appropriately at this time. Pt sitting up in chair in no distress. Care providers, pharmacy, and demographics verified/updated. Admitting Dx: choldocholithiasis PCP:Reyes Specialists:Pt denies. Preferred Pharmacy: [facility] Insurance: [email or web address] [email or web address] Prescription Benefit: yes LNOK: Franklyn Linda, son Living Arrangements: Pt lives alone in a two story home with 11 steps to enter with a rail. Pt reports he is I in ADL's and denies concerns at home. Transportation: Pt drives self and denies concerns with transportation. DME/HHC/SNF: Pt has a BGM with sufficient supplies. Pt has canes and crutches but does not use. Pt denies hx of HHC or SNF stays. Pt states no concerns with going home at time of dc. Pt states no further concerns/needs. CM to follow. Advised pt to ask CM if any further question/concerns/needs arise, voices understanding. Pt Goal: Home Plan: Home
--- NOTE | 2022-07-02 09:37 | DCINST_ITS ---
Discharge Instructions Diet Discharge Diet: Light diet - advance as tolerated (Advised bland diet for 5 days.) Activity Discharge Activity: Return to Normal Activity Weight Bearing Status: Weight bearing as tolerated Dressing / Incision Call your doctor if you observe: Fever of 101 or Higher, Coldness, Increased Pain, Numbness or Tingling, Change in Color, Inability to urinate, Inability to have a bowel movement, Shortness of breath, Dizziness, Fainting spells, Swelling in the ankles, Chest pain, Prolonged hiccupping, Increased palpitations (irregular heartbeat) and Calf discomfort Follow Up Care When: IN 2 WEEKS Test Results: Test results from this visit will be discussed in further detail at your follow- up appointment, if applicable. Discharge Plan Admission Admit Date/Time: 06/30/22 12:09 Attending Provider: Luis Junior Primary Care Provider: Julio Chambers Discharge Orders/Prescriptions Prescriptions: New ursodiol 250 mg Tablet 250 mg PO BID 30 Days Qty: 60 0RF Continued aspirin 81 mg Tablet,Delayed Release (Dr/Ec) 81 mg PO DAILY simvastatin 20 mg tablet 20 mg PO QHS losartan 100 mg Tablet 100 mg PO DAILY Held metformin 1,000 mg Tablet 500 mg PO BID Hold Instructions: Advised to hold for 3 days patient is today as directed hypovolemia and liver chemistry elevated. Referrals / Follow Up: Edenilson Cruz MD [Med Staff - Active Staff] - Within 2 Weeks Julio Chambers MD [Primary Care Provider] - Within 2 Weeks Tan Ramirez DO [Med Staff - Active Staff] - Within 2 Weeks (For obstructive jaundice.) Disposition Disposition (needs filled in before D/C Order can be placed): Home, Self Care
[2022-07-02] MEDS: Losartan Potassium 100 MG Tablet PO (11:00)
[2022-07-02] MEDS: Aspirin E.C. 81 MG Tablet PO (11:00)
[2022-07-02] MEDS: Ursodiol 250 MG Tablet PO (11:00)
[2022-07-02 11:45] LABS: Bedside Glucose 389 mg/dL (74-106)
--- NOTE | 2022-07-02 12:02 | CHAPLAIN ---
Type of Pastoral Visit _x__ Initial Visit ___ Follow-up Visit ___ On-call Visit ___ General Patient Visit ___ Spiritual Assessment ___ Family Conference ___ Bereavement ___ Rapid Response ___ Code Blue ___ Other (describe below) Pastoral Care Referral From _x__ Patient ___ Family ___ Nurse ___ Physician ___ Manager Quality Systems ___ It Auditor ___ Other (describe below) Sacrament/Intervention _x__ Active listening ___ Anointing ___ Anglican ___ Bereavement ___ Communion ___ Paty exploration ___ ___ Life review ___ Prayer ___ Reconciliation ___ Sacrament of Sick ___ Supportive presence ___ Wedding ___ Other (describe below) Pastoral Comments patient identified himself as a Jehovah Witness and began to challenge the cheondoism beliefs of this parasitologist; this parasitologist repeatedly deflected challenges and continued to ask how the patient could be supported or assisted; pt proceeded to question the parasitologist on biblical interpretation; this parasitologist left the room with an offer of support for the future if so desired; pt stated I just want to get out of here
[2022-07-02 13:43] VITALS: BP 156/71; PULSE 66; RESP 18; TEMP 36.7; O2SAT 98
--- NOTE | 2022-07-02 13:43 | DS.PCM_ITS ---
Providers Date of Admission: 06/30/22 Date of Discharge: 07/02/22 Primary Care Physician: Dr. Julio Chambers MD Consultations 06/30/22 12:53 Consult: Gastroenterology Routine Consulting Provider: [facility] Reason for Consult: Choledocolithiasis EMERGENT Consult: No MD Notified: Yes Date Notified: 06/30/22 Time Notified: 12:13 Method of Notification: ED Physician Initiated Reason For Visit: CHOLDOCHOLITHIASIS Diagnosis Discharge Diagnosis (1) Choledocholithiasis with obstruction: Status: Acute Code(s): K80.51 - Calculus of bile duct without cholangitis or cholecystitis with obstruction Plan This 66-year-old gentleman is being admitted for further evaluation of cholelithiasis with choledocholithiasis and need for ERCP and possible lap giselle. 1. Chronic cholelithiasis with choledocholithiasis causing obstructive jaundice: Patient is being admitted on [facility] floor.Patient lab work on 06/16/2022 shows TB 3.1, DP 1.8, ALP 285, ALT 77, AST 31, total protein albumin normal. Glucose 191. Electrolytes were normal. BUN/creatinine 12/0.78. Patient had CT abdomen pelvis with IV contrast on 06/18/2022 reported as dilatation of CBD, HPr. CBD 1.8 cm. Possible filling defect in distal CBD just proximal to ampulla. GB distended with several small calcified stones in the dependent portion. No GB wall thickening or PC fluid. Liver no mass. Spleen no mass no splenomegaly. Patient had MRI/MRCP on 06/26/2022 reported as bile duct 2 cm, consider ERCP and similar findings of CT abdomen with several GB stones and distended GB. Labs done in the ED shows TB 9.8, DB 8.02, ALT 121, AST 80 alkaline phosphatase 397. GI was consulted. Empirically patient is high risk for hepatobiliary sepsis therefore patient started on IV Zosyn. 07/01: ERCP was done on 06/30 and entire main bile duct was moderately dilated with a stone causing obstruction. Complete removal was accomplished by biliary sphincterotomy and balloon extraction. 1 temporary stent was placed. Twelve- lead EKG shows sinus bradycardia 58 beats per, QTc [address]-T changes. Patient does not have chest pain or shortness of breath. Patient has moderate perioperative risk for moderate risk laparoscopic cholecystectomy. Patient plan for lap giselle at 1 PM. After ERCP, patient is feeling better with decreased dryness in eyes.INR is 1.1. Total bilirubin, direct bilirubin, ALT AST and alkaline phosphatase all improving. Serum lipase normal. Discussed with surgeon Dr. Cruz. 07/02:Discussed with surgeon Dr. Cruz. ALT and AST improving. T. bili 2.6, DB 2.0 also significant improvement after ERCP and stenting. No leukocytosis, no fever. Patient had lap giselle yesterday. Intra-Op cholangiogram shows contrast passing through the stent but not around the stent therefore suspicion of tight distal CBD stricture, needs to rule out malignant stricture. Dr. Ramirez will follow with tumor markers in the office. Follow-up with surgeon in 2 weeks. Patient does not need further antibiotic therefore Zosyn discontinued. 2. Diabetes mellitus type 2: Glucose in BMP 303, hyperglycemia. Accu-Chek before meals and at bedtime coverage Humalog sliding scale. Lantus 10 units subcutaneous at bedtime daily. Glucose is 254. Continue Accu-Cheks.Lantus dose decreased to 8 units subcutaneous daily as patient is NPO. 07/02: Patient refusing insulin. Advised to hold metformin for 3 days so that liver chemistry returns to normal. Patient was tried to convince to continue Accu-Cheks before meals and at bedtime and cover with Humalog sliding scale till then time. 3. Hypertension and dyslipidemia: Blood pressure is in normal range. DVT prophylaxis, moderate to high risk: Lovenox 40 mg subcu daily. Discharge note. Living will/advanced directive/end of life care: Patient does not have living will or advanced directive. After discussion of benefits/risks procedures involved with full code, DNR CC arrest and DNR CC, the patient opted for full code. Patient does want artificial life support including intubation, tube feed, v entilator and/chest compression, central venous catheter, vasopressor and DC shock if needed Total time spent in [id number] encounter in discussion of advanced directive 17 minutes. Medications at Discharge Home Medications aspirin 81 mg tablet,delayed release 81 mg PO DAILY HEART HEALTH 06/30/22 losartan 100 mg tablet 100 mg PO DAILY BLOOD PRESSURE 06/30/22 metformin 1,000 mg tablet 500 mg PO BID DIABETES 06/30/22 simvastatin 20 mg tablet 20 mg PO QHS CHOLESTEROL 06/30/22 ursodiol 250 mg tablet 250 mg PO BID 30 days #60 tabs 07/02/22 Physical Exam Narrative Patient had lap giselle yesterday. Intra-Op cholangiogram findings discussed with the surgeon and mentioned in assessment plan. Jaundice is much improved. No abdominal pain. Patient tolerating diet. Passing flatus. Physical exam General: Alert, Oriented x3, Cooperative HEENT: Icterus/jaundice improving atraumatic, PERRLA, EOMI, Normocephalic Oral: No Gingival or Mucosal Lesions/ Ulcerations Neck: Supple, No JVD, Negative Carotid Bruits Lungs: Air entry diminished in bilateral lung bases. No crepitation/rhonchi Cardiovascular: Regular rate, Regular Rhythm, Normal S1, Normal S2, No murmurs Abdomen: Soft, no acute right upper or epigastric tenderness. No guarding/rigidity. No palpable mass. No abdominal distention. : No renal angle tenderness. No suprapubic tenderness. Extremities: No edema, Capillary Refill Less than 3 Seconds Skin: No rashes, No breakdown. No pruritus. Musculoskeletal: No Tenderness to Palpation of Joints or Extremities. ROM full and adequate. Neurological: Cranial nerves II-XII grossly intact, DTR 2+/4 and Symmetrical, Neuro grossly intact Psych/Mental Status: Normal Affect, Appropriate. Weight / BMI Weight Weight: 218 lb 11.177 oz Body Mass Index (BMI) 28.0 ABG / Lab / Microbiology Data Result Diagrams: 07/02/22 05:24 07/02/22 05:24 Laboratory: Laboratory Results - last 24 hr 07/01/22 16:48: POC Glucose 150 H 07/01/22 21:44: POC Glucose 236 H 07/02/22 03:12: POC Glucose 299 H 07/02/22 05:24: Sodium 136, Potassium 4.7, Chloride 102, Carbon Dioxide 23.0, Anion Gap 11, BUN 23 H, Creatinine 1.12, Estim Creat Clear Calc 74.41, Est GFR (MDRD) Af Amer 84, Est GFR (MDRD) Non-Af 69, BUN/Creatinine Ratio 20.5 H, Glucose 396 H, Calcium 8.3 L, Total Bilirubin 2.60 H, Direct Bilirubin 2.03 H, AST 32, ALT 70 H, Alkaline Phosphatase 256 H, Total Protein 5.6 L, Albumin 2.3 L , Globulin 3.3, Triglycerides 203 H, Cholesterol 124, LDL Cholesterol 66, VLDL Cholesterol 41 H, HDL Cholesterol 17 L 07/02/22 05:24: WBC 6.4, RBC 3.68 L, Hgb 11.2 L, Hct 33.2 L, MCV 90.2, MCH 30.4, MCHC 33.7, RDW Std Deviation 43.3, RDW Coeff of Thais 13.1, Plt Count 186, MPV 11.0, Immature Gran % (Auto) 0.500, Neut % (Auto) 85.3 H, Lymph % (Auto) 7.6 L, [place] % (Auto) 6.6, Eos % (Auto) 0.0, Baso % (Auto) 0.0, Absolute Neuts (auto) 5.5, Absolute Lymphs (auto) 0.49 L, Nucleated RBC % 0 07/02/22 06:50: POC Glucose 405 H 07/02/22 11:05: POC Glucose 389 H Radiography Diagnostic Testing: Radiology Impression Cholangiogram 07/01/22 15:31 IMPRESSION: Narrowing with obstruction in the midportion of the common bile duct as described. A neoplastic process should be ruled out. Electronically Signed: Domenico Malave MD at 16:13 EST , D/C Instructions Discharge Diet: Light diet - advance as tolerated (Advised bland diet for 5 days.) Weight Bearing Status: Weight bearing as tolerated Call your doctor if you observe: Fever of 101 or Higher, Coldness, Increased Pain, Numbness or Tingling, Change in Color, Inability to urinate, Inability to have a bowel movement, Shortness of breath, Dizziness, Fainting spells, Swelling in the ankles, Chest pain, Prolonged hiccupping, Increased palpitations (irregular heartbeat) and Calf discomfort When: IN 2 WEEKS Meaningful Use Info Meaningful Use Diagnoses (Choose all that apply): None applicable Discharge Plan Admission Admit Date/Time: 06/30/22 12:09 Attending Provider: Luis Junior Primary Care Provider: Julio Chambers Discharge Orders/Prescriptions Prescriptions: New ursodiol 250 mg Tablet 250 mg PO BID 30 Days Qty: 60 0RF Continued aspirin 81 mg Tablet,Delayed Release (Dr/Ec) 81 mg PO DAILY simvastatin 20 mg tablet 20 mg PO QHS losartan 100 mg Tablet 100 mg PO DAILY Held metformin 1,000 mg Tablet 500 mg PO BID Hold Instructions: Advised to hold for 3 days patient is today as directed hypovolemia and liver chemistry elevated. Referrals / Follow Up: Edenilson Cruz MD [Med Staff - Active Staff] - Within 2 Weeks Julio Chambers MD [Primary Care Provider] - Within 2 Weeks Tan Ramirez DO [Med Staff - Active Staff] - Within 2 Weeks (For obstructive jaundice.) Disposition Disposition (needs filled in before D/C Order can be placed): Home, Self Care Charges/Coding Visit Charges Inpatient E&M: 50479 Disch Hosp >30min
[2022-07-02 15:01] LABS: Bedside Glucose 390 mg/dL (74-106)
== END 2022-07-02 15:25 | disposition home or self-care (01) | DRG 419 ==
LOC: ED 11:59 → MS3 12:41
PROVIDERS: Anesthesiology; Internal Medicine Gastroenterology; Surgery; Admitting Provider Internal Medicine; Emergency Provider Emergency Medicine; PCP Family Medicine; Visit Provider Internal Medicine
PROC: 0FC98ZZ Extirpation of Matter from Common Bile Duct, Via Natural or Artificial Opening Endoscopic (ICD-10-PCS; CPT 43260; principal; 2022-06-30 16:00)
PROC: 0FT44ZZ Resection of Gallbladder, Percutaneous Endoscopic Approach (ICD-10-PCS; CPT 47610; principal; 2022-07-01 12:40)
DX: K80.71 Calculus of gallbladder and bile duct without cholecystitis with obstruction (principal); E11.65 Type 2 diabetes mellitus with hyperglycemia; K83.8 Other specified diseases of biliary tract; E78.5 Hyperlipidemia, unspecified; I10 Essential (primary) hypertension; Z79.84 Long term (current) use of oral hypoglycemic drugs; Z66 Do not resuscitate; Z79.82 Long term (current) use of aspirin; Z51.5 Encounter for palliative care
CPT/HCPCS: 36415; 74300; 74330; 76000; 80048; 80061; 80076; 82962; 83036; 83690; 84484; 85025; 85610; 85730; 88304; 93005; 94668; 99252; 99283; J7030; J7120; A4216; G0463; J2405

== ENCOUNTER → 2022-07-21 | Outpatient (CLI) | payer MEDICARE, SELFPAY ==
[2022-07-22 10:02] LABS: Carbohydrate AG 19-9 9 U/mL (0-35); Carcinoembryonic Antigen 1.7 ng/mL (0.0-4.7)
== END | disposition home or self-care (01) ==
LOC: LAB 10:27
PROVIDERS: PCP Family Medicine; Referring Provider Internal Medicine Gastroenterology; Visit Provider Internal Medicine Gastroenterology
DX: K81.0 Acute cholecystitis (principal); C18.9 Malignant neoplasm of colon, unspecified
CPT/HCPCS: 36415; 82378; 86301

== ENCOUNTER 2022-09-29 10:19 | Day surgery (SDC) | payer MEDICARE, SELFPAY ==
[2022-09-29 10:57] VITALS: BP 139/86; PULSE 66; RESP 16; TEMP 36.8; O2SAT 99; BMI 30.2
[2022-09-29] MEDS: Lactated Ringers 1,000 ML 15 ML IV (10:57)
--- NOTE | 2022-09-29 11:00 | RAD_ITS ---
STUDY: ERCP. REASON FOR EXAM: Male, 66 years old. Right upper quadrant pain. FLUOROSCOPY TIME (if supplied): ( 1 minute and 14 seconds ) minutes/seconds. 20.54 mGy TECHNIQUE: Intraoperative images are provided for ERCP. The banking teacher injected contrast material. COMPARISON: None. FINDINGS: There is evidence of dilated intrahepatic biliary ducts. Dilatation of the common bile duct. The biliary stent was removed. RAD/ERCP Biliary Only IMPRESSION: Dilated intra and extrahepatic biliary ducts. The biliary stent was removed. Electronically Signed: Domenico Malave MD at 13:48 EDT ,
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
--- NOTE | 2022-09-29 12:00 | FLU_PTH ---
PATIENT: ROGELIO ROCHE LOC: EN U#:[id number] AGE/SX: 66/M ROOM: RE09/29/[address]: Dr. Tan Ramirez DO : 1955 BED: DIS: 09/29/2022 SPEC #: [id number] RECD: 09/29/22 13:11 STATUS: ZULEIKA CHELLY #: [id number] TITO: 09/29/22 12:[address]: Tan Ramirez DEPT: CYTOLOGY RECD BY: Sonya Baeuchamp ENTERED: 09/29/22 13:44 SP TYPE: Fluid OTHR DR: Dr. Julio Chambers MD Tissues: A - Bile duct, NOS B - Bile duct, NOS C - Bile duct, NOS D - Bile duct, NOS E - Biliary tract, NOS Procedures: Special Stain Group II Surgery Specimen Level IV Cytospin Fluid Cytology Other HEADER OPERATION: ERCP, stent removal, biliary cytology brushings, stent placement PRE-OP DIAGNOSIS: Gallstones and choledocholithiasis TISSUE SUBMITTED: A - [place] #1 fluid, B - [place] smears #1 x4, C - [place] #2 fluid, D - [place] smears #2 x4, E - 10 cm long biliary stent fluid DIAGNOSIS CYTOLOGY A. [place] #1 fluid (cytospin and cell block): Negative for malignant cells. See comment. B. Brush[place] #1 (smears): Negative for malignant cells. See comment. C. [place] #2 fluid (cytospin and cell block): Negative for malignant cells. See comment. D. Brushings #2 (smears): Negative for malignant cells. See comment. E. Biliary stent fluid (cytospin and cell block): Acellular fluid. See comment. SJ:rg 09/30/2022 COMMENT A-D. A few clusters of glandular epithelial cells are noted with mild atypia, favor reactive. E. Acellular amorphous particles are noted consistent with bile. Correlation with clinical, radiologic findings and appropriate follow up are necessary. Please make reference to previous specimen ([id number]), gallbladder and contents, cholecystectomy with diagnosis of ?acute and chronic cholecystitis and cholelithiasis.? CYTOLOGY STUDY Slides are reviewed. CYTOLOGY GROSS A - Received is a metallic endoscopic cytobrush with adherent minute fragments of mcelroy-red tissue brush in 2 ml of clear red fluid and labeled with the patient's name and and designated per the requisition as brush #1. The material is dislodged from the brush and submitted for cytology preparation including cell block. B - Received are four smears labeled with the patient's name and designated per the requisition as brush #1. Submitted for staining. C - Received is a metallic endoscopic cytobrush with adherent minute fragments of mcelroy-red tissue brush in 2 ml of clear red fluid and labeled with the patient's name and and designated per the requisition as brush #2. The material is dislodged from the brush and submitted for cytology preparation including cell block. D - Received are four smears labeled with the patient's name and designated per the requisition as brush #2. Submitted for staining. E - Received is 45 ml of green-yellow cloudy fluid labeled with the patient's name and and designated per the requisition as biliary stent. Submitted for cytology preparation including cell block. / rg 09/29/2022 TC:5 CPT: 51522 x3, 35031 x3, 31511 x2 ADDENDUM ADDENDUM ADDENDUM ADDENDUM ADDENDUM 10/19/2022 12:20 ADDENDUM 10/19/2022 12:20 ADDENDUM 10/19/2022 12:20 ADDENDUM 10/19/2022 12:20 ADDENDUM 10/19/2022 12:20 A. Rare atypical cells noted, favor reactive. Case has been reviewed in consultation with Dr. Odell who concurs with the above diagnosis. IDC:AM
[2022-09-29 12:46] LABS: Bedside Glucose 115 mg/dL (74-106)
--- NOTE | 2022-09-29 12:56 | OP.ERCP_ITS ---
Patient Name: Vicente Linda Procedure Date: 09/29/2022 11:10 AM Date of : 1955 Age: 66 Procedure: ERCP Indications: Bile duct stone(s), Stent removal Providers: Tan Ramirez DO Referring MD: Julio Chambers MD Medicines: Monitored Anesthesia Care Patient Profile: This is a 66 year old male. Refer to note in patient chart for documentation of history and physical. Patient has symptoms of acute jaundice. Complications: No immediate complications. Procedure: Pre-Anesthesia Assessment: - Prior to the procedure, a History and Physical was performed, and patient medications and allergies were reviewed. The patient is competent. The risks and benefits of the procedure and the sedation options and risks were discussed with the patient. All questions were answered and informed consent was obtained. Patient identification and proposed procedure were verified by the physician in the pre-procedure area. Mental Status Examination: alert and oriented. Airway Examination: normal oropharyngeal airway and neck mobility. Respiratory Examination: clear to auscultation. CV Examination: normal. Prophylactic Antibiotics: The patient does not require prophylactic antibiotics. Prior Anticoagulants: The patient has taken no previous anticoagulant or antiplatelet agents. ASA Grade Assessment: II - A patient with mild systemic disease. After reviewing the risks and benefits, the patient was deemed in satisfactory condition to undergo the procedure. The anesthesia plan was to use general anesthesia. Immediately prior to administration of medications, the patient was re-assessed for adequacy to receive sedatives. The heart rate, respiratory rate, oxygen saturations, blood pressure, adequacy of pulmonary ventilation, and response to care were monitored throughout the procedure. The physical status of the patient was re-assessed after the procedure. After obtaining informed consent, the scope was passed under direct vision. Throughout the procedure, the patient's blood pressure, pulse, and oxygen saturations were monitored continuously. The Duodenoscope was introduced through the mouth, and advanced to the duodenum and used to inject contrast into the bile duct. The ERCP was accomplished without difficulty. The patient tolerated the procedure well. Scope In: 12:19:34 PM Scope Out: 12:44:09 PM Total Procedure Duration Time 0 hours 24 minutes 35 seconds Findings: The instructor extension work film was normal. The esophagus was successfully intubated under direct vision. The scope was advanced to a normal major papilla in the descending duodenum without detailed examination of the pharynx, larynx and associated structures, and upper GI tract. The upper GI tract was grossly normal. The bile duct was deeply cannulated with the short-nosed traction sphincterotome. Contrast was injected. I personally interpreted the bile duct images. There was brisk flow of contrast through the ducts. Image quality was excellent. Contrast extended to the entire biliary tree. Opacification of the entire biliary tree except for the cystic duct and gallbladder and main bile duct was successful. The maximum diameter of the ducts was 12 mm. The lower third of the main bile duct contained a single localized stenosis 3 mm in length. The entire biliary tree except for the cystic duct and gallbladder was diffusely dilated, secondary to a stricture. The largest diameter was 12 mm. A cholecystectomy had been performed. A straight Roadrunner wire was passed into the biliary tree. A 5 mm biliary sphincterotomy was made with a monofilament traction (standard) sphincterotome using ERBE electrocautery. There was no post-sphincterotomy bleeding. The biliary tree was swept with a 12 mm balloon starting at the bifurcation. Sludge was swept from the duct. All stones were removed. One stent was removed from the biliary tree using a snare and sent for cytology. The stent was found to be partially occluded via the water column test. Cells for cytology were obtained by brushing in the lower third of the main bile duct. Cells for cytology were obtained by brushing in the lower third of the main bile duct. The lower third of the main bile duct was successfully dilated with a 6-7-8 mm balloon (to a maximum balloon size of 8 mm) dilator. One 10 Fr by 7 cm temporary stent was placed 5 cm into the common bile duct. Bile flowed through the stent. The stent was in good position. Impression: - A single localized biliary stricture was found in the lower third of the main bile duct. The stricture was indeterminate. - The biliary system was dilated, secondary to a stricture. - The patient has had a cholecystectomy. - Choledocholithiasis was found. Complete removal was accomplished by biliary sphincterotomy and balloon extraction. - A biliary sphincterotomy was performed. - The biliary tree was swept. - One stent was removed from the biliary tree. - Cells for cytology obtained in the lower third of the main duct. - Cells for cytology obtained in the lower third of the main duct. - The lower third of the main bile duct was successfully dilated. - One temporary stent was placed into the common bile duct. Procedure Code(s): --- Professional --- 77219, Endoscopic retrograde cholangiopancreatography (ERCP); with removal and exchange of stent(s), biliary or pancreatic duct, including pre- and post-dilation and guide wire passage, when performed, including sphincterotomy, when performed, each stent exchanged 52253, Endoscopic retrograde cholangiopancreatography (ERCP); with removal of calculi/debris from biliary/pancreatic duct(s) 94246, 59, Endoscopic retrograde cholangiopancreatography (ERCP); with biopsy, single or multiple 25513, 26, Endoscopic catheterization of the biliary ductal system, radiological supervision and interpretation CPT copyright 2017 [employer]. All rights reserved. The codes documented in this report are preliminary and upon plastics scientist review may be revised to meet current compliance requirements. Tan Ramirez DO 09/29/2022 12:55:25 PM This report has been signed electronically. Number of Addenda: 0 Note Initiated On: 09/29/2022 11:10 AM
--- NOTE | 2022-09-29 12:56 | OP.CCLET_ITS ---
09/29/2022 Julio Chambers MD Re : ERCP procedure for Vicente Linda Dear Dr. Chambers This procedure was performed on Thursday, September 29, 2022. My impressions and recommendations are as follows: Impressions : - A single localized biliary stricture was found in the lower third of the main bile duct. The stricture was indeterminate. - The biliary system was dilated, secondary to a stricture. - The patient has had a cholecystectomy. - Choledocholithiasis was found. Complete removal was accomplished by biliary sphincterotomy and balloon extraction. - A biliary sphincterotomy was performed. - The biliary tree was swept. - One stent was removed from the biliary tree. - Cells for cytology obtained in the lower third of the main duct. - Cells for cytology obtained in the lower third of the main duct. - The lower third of the main bile duct was successfully dilated. - One temporary stent was placed into the common bile duct. Recommendations : My findings are described in the full procedure note, which is enclosed. If I can be of further assistance, please feel free to contact me at . Sincerely, Tan Ramirez DO 09/29/2022 12:55:25 PM This report has been signed electronically.
[2022-09-29 12:58] VITALS: BP 121/64; BP 139/86; PULSE 74; RESP 17; TEMP 36.4; O2SAT 98
[2022-09-29 13:00] VITALS: BP 119/63; BP 139/86; PULSE 75; RESP 16; O2SAT 98
[2022-09-29 13:15] VITALS: BP 118/81; BP 139/86; PULSE 71; RESP 16; O2SAT 98
[2022-09-29 13:32] VITALS: BP 109/61; BP 139/86; PULSE 69; RESP 16; TEMP 36.4; O2SAT 99
[2022-09-29 13:37] LABS: Bedside Glucose 120 mg/dL (74-106)
[2022-09-29 13:50] VITALS: BP 139/86
[2022-09-30 10:06] LABS: Cytology, Body Fluid / CSF SEE PATHOLOGY REPORT
[2022-09-30 10:08] LABS: Cytology, Body Fluid / CSF SEE PATHOLOGY REPORT
== END 2022-09-29 13:57 | disposition home or self-care (01) ==
LOC: EN 10:22 → AC 10:24
PROVIDERS: PCP Family Medicine; Referring Provider Family Medicine; Visit Provider Internal Medicine Gastroenterology
PROC: (CPT 43260; principal; 2022-09-29 11:40)
DX: K80.51 Calculus of bile duct without cholangitis or cholecystitis with obstruction (principal); E11.9 Type 2 diabetes mellitus without complications; I10 Essential (primary) hypertension; Z79.84 Long term (current) use of oral hypoglycemic drugs; Z79.82 Long term (current) use of aspirin; K83.8 Other specified diseases of biliary tract
CPT/HCPCS: 43261; 43276; 43264; 74328; 76000; 82962; 88108; 88161; 88305; 88313; J7120; J2405

== ENCOUNTER 2023-01-12 13:13 | Day surgery (SDC) | payer MEDICARE, SELFPAY ==
--- NOTE | 2023-01-12 | FLU_PTH ---
PATIENT: ROGELIO ROCHE LOC: EN U#:[id number] AGE/SX: 67/M ROOM: RE01/12/[address]: Dr. Tan Ramirez DO : 1955 BED: DIS: 01/12/2023 SPEC #: [id number] RECD: 01/12/23 16:17 STATUS: ZULEIKA CHELLY #: [id number] TITO: 01/12/23 00:[address]: Tan Ramirez DEPT: CYTOLOGY RECD BY: Bharat Yancey ENTERED: 01/13/23 08:12 SP TYPE: Fluid OT DR: Dr. Julio Chambers MD Tissues: Biliary tract, NOS Procedures: Special Stain Group II Surgery Specimen Level IV Cytospin Fluid HEADER OPERATION: ERCP, stent removal, balloon sweeping, spy glass, lithotripsy PRE-OP DIAGNOSIS: Choledocholithiasis with obstruction TISSUE SUBMITTED: Biliary stent fluid for cytology DIAGNOSIS CYTOLOGY Biliary stent fluid for cytology (cytospin and cell block): Negative for malignant cells. See comment. CHIARA:christoph 01/14/2023 COMMENT Clinical correlation and appropriate follow up are necessary. CYTOLOGY STUDY Slides are reviewed. CYTOLOGY GROSS Received is 30 ml of brown fluid labeled with the patient's name and and designated per the requisition as biliary stent. Submitted for cytology preparation including cell block. / christoph 01/13/2023 TC:5 CPT: 27647, 68227
[2023-01-12 13:33] VITALS: BP 143/80; PULSE 77; RESP 16; TEMP 36.4; O2SAT 97; BMI 30.5
[2023-01-12] MEDS: Lactated Ringers 1,000 ML 15 ML IV (13:43)
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
--- NOTE | 2023-01-12 14:30 | RAD_ITS ---
EXAM: FL FLUOROSCOPY < 1 HOUR CLINICAL INDICATION: PAIN -- -- 80 SEC FLUORO, 20.6 MGY, 16 IMAGES TECHNIQUE: Fluoroscopic images performed in multiple projections. Fluoroscopic guidance was provided by a physician. No radiologist was present. COMPARISON: None FINDINGS: Endoscopy and cannulation were carried out by the referring physician. Dilated common bile duct and intrahepatic biliary ducts. The examination was not performed for diagnostic purposes by the radiologist. The fluoroscopy time was 1 minute and 20 seconds. 16 fluoroscopic images were obtained. RAD/ERCP Biliary Only IMPRESSION: ERCP as described above. Electronically Signed: Ashish Chau MD at 9:57 EDT ,
[2023-01-12 15:14] LABS: Bedside Glucose 147 mg/dL (74-106)
--- NOTE | 2023-01-12 15:43 | OP.ERCP_ITS ---
Patient Name: Vicente Linda Procedure Date: 01/12/2023 2:25 PM Date of : 1955 Age: 67 Procedure: ERCP Indications: Benign stricture of the common bile duct, Stent removal, Biliary stent removal Providers: Tan Ramirez DO Referring MD: Julio Chambers MD Medicines: General Anesthesia Patient Profile: This is a 67 year old male. Refer to note in patient chart for documentation of history and physical. Patient has symptoms of acute right upper quadrant abdominal pain and chronic jaundice. Complications: No immediate complications. Procedure: Pre-Anesthesia Assessment: - Prior to the procedure, a History and Physical was performed, and patient medications and allergies were reviewed. The patient is competent. The risks and benefits of the procedure and the sedation options and risks were discussed with the patient. All questions were answered and informed consent was obtained. Patient identification and proposed procedure were verified by the physician in the pre-procedure area. Mental Status Examination: alert and oriented. Airway Examination: normal oropharyngeal airway and neck mobility. Respiratory Examination: clear to auscultation. CV Examination: normal. Prophylactic Antibiotics: The patient does not require prophylactic antibiotics. Prior Anticoagulants: The patient has taken no anticoagulant or antiplatelet agents. ASA Grade Assessment: II - A patient with mild systemic disease. After reviewing the risks and benefits, the patient was deemed in satisfactory condition to undergo the procedure. The anesthesia plan was to use general anesthesia. Immediately prior to administration of medications, the patient was re-assessed for adequacy to receive sedatives. The heart rate, respiratory rate, oxygen saturations, blood pressure, adequacy of pulmonary ventilation, and response to care were monitored throughout the procedure. The physical status of the patient was re-assessed after the procedure. After obtaining informed consent, the scope was passed under direct vision. Throughout the procedure, the patient's blood pressure, pulse, and oxygen saturations were monitored continuously. The Duodenoscope was introduced through the mouth, and advanced to the duodenum and used to inject contrast into the bile duct. Scope In: 3:00:34 PM Scope Out: 3:35:25 PM Total Procedure Duration Time 0 hours 34 minutes 51 seconds Findings: The field scout film was normal. The esophagus was successfully intubated under direct vision. The scope was advanced to a normal major papilla in the descending duodenum without detailed examination of the pharynx, larynx and associated structures, and upper GI tract. The upper GI tract was grossly normal. The bile duct was deeply cannulated with the short-nosed traction sphincterotome. Contrast was injected. I personally interpreted the bile duct images. There was brisk flow of contrast through the ducts. Image quality was excellent. Contrast extended to the entire biliary tree. Opacification of the entire biliary tree except for the cystic duct and gallbladder was successful. The maximum diameter of the ducts was 10 mm. The entire biliary tree except for the cystic duct and gallbladder and main bile duct contained multiple stones, the largest of which was 10 mm in diameter. The main bile duct was moderately dilated, with a stone causing an obstruction. The largest diameter was 12 mm. A straight Roadrunner wire was passed into the biliary tree. A 5 mm biliary sphincterotomy was made with a braided traction (standard) sphincterotome using ERBE electrocautery. There was no post-sphincterotomy bleeding. To discover objects, the biliary tree was swept with a 15 mm balloon starting at the bifurcation. Sludge was swept from the duct. Many stones were removed. A few stones remained. The bile duct was explored endoscopically using the [email or web address] direct visualization system. The SpyScope was advanced to the right intrahepatic duct(s). Visibility with the scope was excellent. The left main hepatic duct and right main hepatic duct contained multiple stones, the largest of which was 6 mm in diameter. Electrohydraulic lithotripsy was successful. To discover objects, the biliary tree was swept with a 15 mm balloon starting at the right intrahepatic duct(s). Sludge was swept from the duct. All stones were removed. One stent was removed from the biliary tree using a snare and sent for cytology. The stent was found to be occluded via the water column test. Impression: - The entire main bile duct was moderately dilated, with a stone causing an obstruction. - Choledocholithiasis was found. Partial removal was accomplished by biliary sphincterotomy; no stent was inserted. - A biliary sphincterotomy was performed. - The biliary tree was swept. - Lithotripsy was successful. - The biliary tree was swept. - One stent was removed from the biliary tree. Procedure Code(s): --- Professional --- 40868, Endoscopic retrograde cholangiopancreatography (ERCP); with destruction of calculi, any method (eg, mechanical, electrohydraulic, lithotripsy) 18754, Endoscopic retrograde cholangiopancreatography (ERCP); with removal of foreign body(s) or stent(s) from biliary/pancreatic duct(s) 22477, Endoscopic retrograde cholangiopancreatography (ERCP); with sphincterotomy/papillotomy 27146, Endoscopic cannulation of papilla with direct visualization of pancreatic/common bile duct(s) (List separately in addition to code(s) for primary procedure) 07092, 26, Endoscopic catheterization of the biliary ductal system, radiological supervision and interpretation CPT copyright 2021 [employer]. All rights reserved. The codes documented in this report are preliminary and upon manager global communications review may be revised to meet current compliance requirements. Tan Ramirez DO 01/12/2023 3:42:46 PM This report has been signed electronically. Number of Addenda: 0 Note Initiated On: 01/12/2023 2:25 PM
--- NOTE | 2023-01-12 15:43 | OP.CCLET_ITS ---
01/12/2023 Julio Chambers MD Re : ERCP procedure for Vicente Linda Dear Dr. Chambers This procedure was performed on Thursday, January 12, 2023. My impressions and recommendations are as follows: Impressions : - The entire main bile duct was moderately dilated, with a stone causing an obstruction. - Choledocholithiasis was found. Partial removal was accomplished by biliary sphincterotomy; no stent was inserted. - A biliary sphincterotomy was performed. - The biliary tree was swept. - Lithotripsy was successful. - The biliary tree was swept. - One stent was removed from the biliary tree. Recommendations : My findings are described in the full procedure note, which is enclosed. If I can be of further assistance, please feel free to contact me at . Sincerely, Tan Ramirez, 01/12/2023 3:42:46 PM This report has been signed electronically.
[2023-01-12 15:48] VITALS: BP 126/75; BP 143/80; PULSE 78; RESP 18; TEMP 36.4; O2SAT 96
[2023-01-12 16:00] VITALS: BP 120/71; BP 143/80; PULSE 72; RESP 18; O2SAT 99
[2023-01-12 16:12] VITALS: BP 124/74; BP 143/80; PULSE 71; RESP 18; TEMP 36.9; O2SAT 98
[2023-01-12 16:20] VITALS: BP 143/80
== END 2023-01-12 16:25 | disposition home or self-care (01) ==
LOC: EN 13:15 → AC 13:17
PROVIDERS: PCP Family Medicine; Referring Provider Family Medicine; Visit Provider Internal Medicine Gastroenterology
PROC: (CPT 43260; principal; 2023-01-12 14:10)
DX: K80.71 Calculus of gallbladder and bile duct without cholecystitis with obstruction (principal); E11.9 Type 2 diabetes mellitus without complications; Z79.82 Long term (current) use of aspirin; K83.8 Other specified diseases of biliary tract; R74.8 Abnormal levels of other serum enzymes; R17 Unspecified jaundice; Z79.84 Long term (current) use of oral hypoglycemic drugs; I10 Essential (primary) hypertension
CPT/HCPCS: 43275; 43262; 43265; 43273; 74328; 76000; 82962; 88108; 88305; 88313; 93005; C1726; J2405